=== PATIENT | female | born 1955 | race Caucasian/White ===

== ENCOUNTER → 2022-06-11 | Day surgery (SDC) | payer BC ==
[~2022-06-11] MED LIST: Lactated Ringers 1,000 ML IV PRN; Midazolam 1 MG/ML 2 ML SDV IV ONE; Sodium Chloride 0.9% 10 ML Syringe FLUSH PRN; Sodium Chloride 0.9% 10 ML Syringe IV ONE; acetaZOLAMIDE 500 MG Cap.ER PO ONE; fentaNYL 100 MCG/2 ML SDV IV ONE
== END ==
LOC: FB.SDS 06:00
PROVIDERS: ATTEND Ophthalmology
DX: H25.813 Combined forms of age-related cataract, bilateral (principal); H04.123 Dry eye syndrome of bilateral lacrimal glands; H35.033 Hypertensive retinopathy, bilateral; H52.223 Regular astigmatism, bilateral; I10 Essential (primary) hypertension; E87.6 Hypokalemia; K21.9 Gastro-esophageal reflux disease without esophagitis; E53.8 Deficiency of other specified B group vitamins; F17.210 Nicotine dependence, cigarettes, uncomplicated; R09.81 Nasal congestion; Z79.899 Other long term (current) drug therapy; Z98.890 Other specified postprocedural states; Z90.49 Acquired absence of other specified parts of digestive tract
CPT/HCPCS: 66984; A9270; J2250; J3010; J3490

== ENCOUNTER 2022-06-25 08:19 | Day surgery (SDC) | payer MEDICARE, BC ==
[2022-06-25] MEDS ORDERED: Sodium Chloride 0.9% 10 ML Syringe FLUSH PRN (08:30)
[2022-06-25] MEDS ORDERED: Lactated Ringers 1,000 ML IV PRN (08:30)
[2022-06-25] MEDS ORDERED: fentaNYL 100 MCG/2 ML SDV IVPUSH ONE (10:18)
[2022-06-25] MEDS ORDERED: Midazolam 1 MG/ML 2 ML SDV IVPUSH ONE (10:18)
[2022-06-25] MEDS ORDERED: acetaZOLAMIDE 500 MG Cap.ER PO ONE (10:30)
== END 2022-06-25 10:56 | disposition home or self-care (01) ==
LOC: FB.SDS 08:19
PROVIDERS: ATTEND Ophthalmology
DX: H25.813 Combined forms of age-related cataract, bilateral (principal); H04.123 Dry eye syndrome of bilateral lacrimal glands; H35.033 Hypertensive retinopathy, bilateral; H52.223 Regular astigmatism, bilateral; I10 Essential (primary) hypertension; F17.210 Nicotine dependence, cigarettes, uncomplicated; Z79.899 Other long term (current) drug therapy
CPT/HCPCS: 00142-QZ; J2250; J3010; J3490; V2632